=== PATIENT | male | born 1960 | race Caucasian/White ===

== ENCOUNTER 2018-03-12 07:36 | Emergency (ER) | payer BC ==
[~2018-03-12] VITALS: Ht 177.8 cm; Wt 91.0 kg
[2018-03-12] MEDS ORDERED: SIMV20TA6 PO (07:41)
[2018-03-12] MEDS ORDERED: ASPI-1159 PO (07:41)
[2018-03-12] MEDS ORDERED: SODIUM CHLORIDE 0.9% 1,000 ML IV ONE (08:15)
[2018-03-12 08:39] LABS: HEMATOCRIT. 49.9 % (42.0-52.0); HEMOGLOBIN. 16.7 g/dL (14.0-18.0); MEAN CORPUSCULAR HEMOGLOBIN 28.9 pg (28.0-32.0); MEAN CORPUSCULAR VOLUME 86.1 fL (80.0-94.0)
[2018-03-12 08:41] LABS: CHLORIDE 104 mEq/L (98-107)
[2018-03-12 08:56] LABS: PLATELET ESTIMATE NORMAL
[2018-03-12 08:57] LABS: PLATELET 227 x1000/uL (130-400)
[2018-03-12] MEDS ORDERED: ACETAMINOPHEN 325MG TABLET PO NR (10:00)
[2018-03-12 12:24] VITALS: BP 118/68
== END 2018-03-12 12:25 | disposition home or self-care (01) ==
LOC: ER 07:43
DX: R55 Syncope and collapse (principal); E86.0 Dehydration; D72.829 Elevated white blood cell count, unspecified; R79.89 Other specified abnormal findings of blood chemistry; I10 Essential (primary) hypertension; E78.00 Pure hypercholesterolemia, unspecified; E11.9 Type 2 diabetes mellitus without complications; Z79.82 Long term (current) use of aspirin
CPT/HCPCS: 36415; 70450; 71045; 80053; 82962; 83735; 83880; 84484; 85025; 93005; 96360; 99285; J7030